=== PATIENT | male | born 1980 | race Caucasian/White ===

== ENCOUNTER 2017-12-05 19:50 | Emergency (ER) | payer OTHER ==
[~2017-12-05] VITALS: Ht 180.3 cm; Wt 90.7 kg
[2017-12-05] MEDS ORDERED: NEURONTIN600 MG PO (20:10)
[2017-12-05] MEDS ORDERED: SEROQUEL 50 MG50 MG PO (20:10)
[2017-12-05] MEDS ORDERED: VIVITROL380 MG IM (20:11)
[2017-12-05] MEDS ORDERED: OSELB75 PO (20:42)
[2017-12-05 20:51] VITALS: BP 112/76
== END 2017-12-05 20:50 | disposition home or self-care (01) ==
LOC: ER 19:50
DX: J11.1 Influenza due to unidentified influenza virus with other respiratory manifestations (principal); Z90.49 Acquired absence of other specified parts of digestive tract